=== PATIENT | female | born 1950 | race Caucasian/White ===

== ENCOUNTER 2017-06-13 11:29 | Emergency (ER) | payer MEDICARE, OTHER ==
--- NOTE | 2017-06-13 12:02 | ER Document Report ---
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 Patient has no personal history of any thyroid issues I have greeted and performed a rapid initial assessment of this patient. A comprehensive ED assessment and evaluation of the patient, analysis of test results and completion of the medical decision making process will be conducted by additional ED providers. PHYSICAL EXAMINATION: GENERAL: Well-appearing, well-nourished and in no acute distress. HEAD: Atraumatic, normocephalic. EYES: Pupils equal round extraocular movements intact, conjunctiva are normal. ENT: Nares patent NECK: Normal range of motion LUNGS: No respiratory distress Musculoskeletal: Normal range of motion NEUROLOGICAL: Normal speech, normal gait. PSYCH: Normal mood, normal affect. SKIN: Warm, Dry, normal turgor, no rashes or lesions noted. - Related Data Allergies/Adverse Reactions: Iodinated Contrast- Oral and IV Dye Allergy (Verified 06/13/17 11:32) morphine Allergy (Verified 06/13/17 11:32) Penicillins Allergy (Verified 06/13/17 11:32) Past Medical History - Social History Chew tobacco use (# tins/day): No Frequency of alcohol use: None Drug Abuse: None - Past Medical History Cardiac Medical History: Reports: Hx Hypercholesterolemia, Hx Hypertension Renal/ Medical History: Denies: Hx Peritoneal Dialysis Psychiatric Medical History: Reports: Hx Depression Past Surgical History: Reports: Hx Cholecystectomy, Hx Hysterectomy, Hx Orthopedic Surgery Physical Exam - Vital signs Vitals: Temp Pulse Resp BP Pulse Ox 98.1 F 59 L 20 189/92 H 95 06/13/17 11:33 06/13/17 11:33 06/13/17 11:33 06/13/17 11:33 06/13/17 11:33 Course - Vital Signs Vital signs: Temp Pulse Resp BP Pulse Ox 98.1 F 59 L 20 189/92 H 95 06/13/17 11:33 06/13/17 11:33 06/13/17 11:33 06/13/17 11:33 06/13/17 11:33
[2017-06-13 12:34] LABS: ABSOLUTE EOSINOPHILS # (AUTO) 0.3 10^3/uL (0.0-0.6); ABSOLUTE LYMPHOCYTES (AUTO) 1.9 10^3/uL (0.5-4.7); ABSOLUTE MONOCYTES (AUTO) 0.4 10^3/uL (0.1-1.4); ABSOLUTE NEUT (AUTO) 4.1 10^3/uL (1.7-8.2); BASOPHILS % (AUTO) 0.5 % (0-2); EOSINOPHILS % (AUTO) 4.9 % (0-6); HEMATOCRIT 41.9 % (36.0-47.0); HEMOGLOBIN 13.8 g/dL (12.0-15.5); LYMPHOCYTES % (AUTO) 27.9 % (13-45); MEAN CORPUSCULAR HEMOGLOBIN 27.8 pg (27.0-33.4); MEAN CORPUSCULAR VOLUME 84 fl (80-97); MONOCYTES % (AUTO) 5.4 % (3-13); PLATELET COUNT 214 10^3/uL (150-450); RED BLOOD COUNT 4.97 10^6/uL (3.72-5.28); RED CELL DISTRIBUTION WIDTH 17.4 % (11.5-14.0); SEGMENTED NEUTROPHILS % (AUTO) 61.3 % (42-78); TOTAL CELLS COUNTED % (AUTO) 100 %; WHITE BLOOD COUNT 6.7 10^3/uL (4.0-10.5)
[2017-06-13 12:49] LABS: ALANINE AMINOTRANSFERASE 44 U/L (9-52); ALBUMIN 4.3 g/dL (3.5-5.0); ALKALINE PHOSPHATASE 123 U/L (38-126); ANION GAP 13 (5-19); ASPARTATE AMINO TRANSFERASE 30 U/L (14-36); BILIRUBIN,DIRECT 0.3 mg/dL (0.0-0.4); BILIRUBIN,TOTAL 0.9 mg/dL (0.2-1.3); BLOOD UREA NITROGEN 25 mg/dL (7-20); CALCIUM 10.3 mg/dL (8.4-10.2); CARBON DIOXIDE 26 mmol/L (22-30); CHLORIDE 104 mmol/L (98-107); CREATINE KINASE < 20 U/L (30-135); GLUCOSE 105 mg/dL (75-110); LIPASE 95.5 U/L (23-300); POTASSIUM 4.3 mmol/L (3.6-5.0); SODIUM 142.7 mmol/L (137-145); TOTAL PROTEIN 7.5 g/dL (6.3-8.2)
--- NOTE | 2017-06-13 12:59 | ER Document Report ---
ED General - General Chief Complaint: Weakness Stated Complaint: HEADACHE Time Seen by Provider: 06/13/17 11:50 Mode of Arrival: Ambulatory Notes: The patient is a 67-year-old female, past medical history ruptured diverticulitis 3 months ago, HTN, clipped aneurysm 4 months ago at [facility], presents with several days of generalized fatigue and hair falling out. She is concerned that she is anemic because she had similar symptoms last time. Patient had a headache earlier today, but this has resolved. She denies focal weakness, numbness, tingling, sudden onset of headache, neck stiffness, fevers, chest pain, shortness of breath, abdominal pain, urinary symptoms, back pain or syncope. - Related Data Allergies/Adverse Reactions: Iodinated Contrast- Oral and IV Dye Allergy (Verified 06/13/17 11:32) morphine Allergy (Verified 06/13/17 11:32) Penicillins Allergy (Verified 06/13/17 11:32) Past Medical History - General Information source: Patient - Social History Smoking Status: Never Smoker Chew tobacco use (# tins/day): No Frequency of alcohol use: None Drug Abuse: None Family History: Reviewed & Not Pertinent Patient has suicidal ideation: No Patient has homicidal ideation: No - Past Medical History Cardiac Medical History: Reports: Hx Hypercholesterolemia, Hx Hypertension Renal/ Medical History: Denies: Hx Peritoneal Dialysis Psychiatric Medical History: Reports: Hx Depression Past Surgical History: Reports: Hx Cholecystectomy, Hx Hysterectomy, Hx Orthopedic Surgery Review of Systems - Review of Systems Notes: REVIEW OF SYSTEMS: CONSTITUTIONAL: -fevers, -chills, +hair loss EENT: -eye pain, -difficulty swallowing, -nasal congestion CARDIOVASCULAR: -chest pain, -syncope. RESPIRATORY: -cough, -SOB GASTROINTESTINAL: -abdominal pain, -nausea, -vomiting, -diarrhea GENITOURINARY: -dysuria, -hematuria MUSCULOSKELETAL: -back pain, -neck pain SKIN: -rash or skin lesions. HEMATOLOGIC: -easy bruising or bleeding. LYMPHATIC: -swollen, enlarged glands. NEUROLOGICAL: -altered mental status or loss of consciousness, +headache, - neurologic symptoms PSYCHIATRIC: -anxiety, -depression. ALL OTHER SYSTEMS REVIEWED AND NEGATIVE. Physical Exam - Vital signs Vitals: Temp Pulse Resp BP Pulse Ox 98.1 F 59 L 20 189/92 H 95 06/13/17 11:33 06/13/17 11:33 06/13/17 11:33 06/13/17 11:33 06/13/17 11:33 - Notes Notes: PHYSICAL EXAMINATION: GENERAL: Well-appearing, well-nourished and in no acute distress. HEAD: Atraumatic, normocephalic. EYES: Pupils equal round and reactive to light, extraocular movements intact, sclera anicteric, conjunctiva are normal. ENT: nares patent, oropharynx clear without exudates. Moist mucous membranes. NECK: Normal range of motion, supple without lymphadenopathy LUNGS: Breath sounds clear to auscultation bilaterally and equal. No wheezes rales or rhonchi. HEART: Regular rate and rhythm without murmurs ABDOMEN: Soft, nontender, normoactive bowel sounds. No guarding, no rebound. No masses appreciated. EXTREMITIES: Normal range of motion, no pitting or edema. No cyanosis. NEUROLOGICAL: Cranial nerves grossly intact. Normal speech, normal gait. Normal sensory and motor exams. PSYCH: Normal mood, normal affect. SKIN: Warm, Dry, normal turgor, no rashes or lesions noted. Course - Re-evaluation Re-evalutation: Patient appears well and is in no acute distress. She is not anemic and rest of blood work is unremarkable, including normal thyroid studies. CTA ordered due to history of aneurysm and headache earlier today, but this did not show any acute abnormalities and her symptoms are atypical for SAH at this time. - Vital Signs Vital signs: Temp Pulse Resp BP Pulse Ox 98.1 F 59 L 20 189/92 H 95 06/13/17 11:33 06/13/17 11:33 06/13/17 11:33 06/13/17 11:33 06/13/17 11:33 - Laboratory Result Diagrams: 06/13/17 12:19 06/13/17 12:19 Laboratory results interpreted by me: 06/13/17 06/13/17 06/13/17 12:19 12:19 12:19 RDW 17.4 H BUN 25 H Calcium 10.3 H Creatine Kinase < 20 L TSH 0.36 L - Diagnostic Test Radiology reviewed: Image reviewed, Reports reviewed Radiology results interpreted by me: CTA Head: NO CTA EVIDENCE OF STENOSIS OR ANEURYSM OF THE [place]. No acute intracranial hemorrhage. No CT evidence of acute large territory ischemic change. 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 Discharge - Discharge Clinical Impression: Fatigue Qualifiers: Fatigue type: unspecified Qualified Code(s): R53.83 - Other fatigue Headache Qualifiers: Headache type: unspecified Headache chronicity pattern: unspecified pattern Intractability: not intractable Qualified Code(s): R51 - Headache Hypertension Qualifiers: Hypertension type: unspecified Qualified Code(s): I10 - Essential (primary) hypertension Condition: Stable Disposition: HOME, SELF-CARE Additional Instructions: When you return back to [place], follow-up with your primary care physician for further evaluation and treatment. HEADACHE: The physician does not feel that the headache you are experiencing has a serious underlying cause. Most headaches are due to emotional stress, with resultant muscle tension (tension headache). Occasionally, headaches are secondary to changes in the blood vessels of the scalp (vascular headache and migraine headache). Sometimes, a headache is the first symptom of another developing illness, such as a viral infection. You have no evidence of stroke, bleeding, meningitis, or other serious cause of your headache. The treatment of headaches varies with the severity and cause of the pain. Not all headaches need pain shots. In fact, there is evidence that using narcotics for headaches may make them worse in the long run. The physician will determine the therapy that's in your best interest. If you develop a fever, if the headache is different from any you've previously experienced, or if the headache progressively worsens, then call your physician at once or go to the emergency room. FOLLOW-UP CARE: If you have been referred to a physician for follow-up care, call the physician s office for an appointment as you were instructed or within the next two days. If you experience worsening or a significant change in your symptoms, notify the physician immediately or return to the Emergency Department at any time for re-evaluation. Forms: Elevated Blood Pressure
[2017-06-13 13:07] LABS: TROPONIN I < 0.012 ng/mL
[2017-06-13 13:16] LABS: FREE T3 3.65 pg/mL (2.77-5.27); FREE T4 (FREE THYROXINE) 0.97 ng/dL (0.78-2.19)
[2017-06-13] MEDS ORDERED: METHYLPREDNISOLONE INJ 125 MG/2 ML SDV IV ONE (13:22)
[2017-06-13] MEDS ORDERED: DIPHENHYDRAMINE HCL 50 MG/ML VIAL IV ONE (13:22)
[2017-06-13 13:30] LABS: THYROID STIMULATING HORMONE 0.36 uIU/mL (0.47-4.68)
[2017-06-13] MEDS ORDERED: NORMAL SALINE 1000 ML 1,000 ML IV ONE (13:44)
--- NOTE | 2017-06-13 14:14 | RADIOLOGY REPORT (SQ) ---
EXAM DESCRIPTION: CTA HEAD COMPLETED DATE/TIME: 06/13/2017 1:49 pm REASON FOR STUDY: headache, hx of 2 clipped aneurysm COMPARISON: None. TECHNIQUE: Post IV contrast scanning, thin section axial imaging through the brain to evaluate the a rterial structures. Source and MIP images are saved and reviewed on PACS. Advanced 3D imaging as volume-rendering, MIPs, SSD performed? yes All CT scanners at this facility use dose modulation, iterative reconstruction, and/or weight based d osing when appropriate to reduce radiation dose to as low as reasonably achievable (ALARA). [facility]: Dose Right [facility]: CareDose [facility]: Dose Right [facility]: Teradose 4D [facility]: MarketGid CONTRAST TYPE AND DOSE: contrast/concentration: Isovue 370.00 mg/ml; Total Contrast Delivered: 70.0 ml; Total Saline Delivered: 75.0 ml RENAL FUNCTION: Creatinine 0.63 LIMITATIONS: There is mild streak artifact adjacent to the intracranial aneurysm clips along the rig ht MCA trifurcation and left proximal middle cerebral artery. FINDINGS: Noncontrast CT Brain: CT brain was performed without contrast, reviewed at bone and brain parenchymal windows. No CT evide nce of acute intracranial hemorrhage, acute large territory ischemic change, mass effect, or midline shift. Patient is post bilateral frontotemporal craniotomies for aneurysm clipping. A right MCA trifurcatio n aneurysm clip is present. A left carotid terminus/proximal MCA clip is present. There are old inf arcts in the left frontal and left anterior temporal regions, and left lateral basal ganglia. Postcontrast CT brain: The postcontrast CT brain images demonstrate no abnormal brain parenchymal contrast enhancement. The re is no brain parenchymal AVM. No gross [place] aneurysm. CT angio [place] with 3D multiplanar reconstructions: Maximum intensity projected images were reviewed from the CT scanner. Additional 3D maximum intensit y re- projected reconstructions were performed with the data on an independent workstation. There is some beam hardening artifact or streak artifact along the right MCA trifurcation clip and le ft proximal MCA/M-1 region clip. No definite [place] stenosis, vascular malformation, or an eurysm on today's study. Incidental finding of a heavily calcified cranial gland, an anatomic variant. At the very bottom edge of the field of view, there is mild bilateral carotid bifurcation atheroscler otic calcification without definite proximal ICA flow significant stenosis IMPRESSION: NO CTA EVIDENCE OF STENOSIS OR ANEURYSM OF THE [place]. No acute intracranial hemorrhage. No CT evidence of acute large territory ischemic change. 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 TECHNICAL DOCUMENTATION: JOB ID: [id number] Quality ID # [id number]: Final reports with documentation of one or more dose reduction techniques (e.g., Au tomated exposure control, adjustment of the mA and/or kV according to patient size, use of iterative reconstruction technique) 2010 [employer]- All Rights Reserved Reading location - IP/workstation name: [email or web address]
[2017-06-13 14:55] VITALS: BP 165/85
== END 2017-06-13 14:55 | disposition home or self-care (01) ==
LOC: ER 11:29
DX: R53.83 Other fatigue (principal); R51 Headache; L65.9 Nonscarring hair loss, unspecified; I10 Essential (primary) hypertension; Z91.041 Radiographic dye allergy status; Z88.5 Allergy status to narcotic agent; Z88.0 Allergy status to penicillin; Z86.79 Personal history of other diseases of the circulatory system
CPT/HCPCS: 99285; 96361; 96374; 96375; 86900; 86901; 36415; 84439; 82553; 86850; 82550; 83690; 84443; 85025; 80053; 84484; 84481; 70496; J1200; J2930; J7030